=== PATIENT | female | born 1945 | race Caucasian/White ===

== ENCOUNTER → 2016-11-28 | Outpatient (CLI) | payer MEDICARE, BC ==
[~2016-11-28] MED LIST: ASPI-535; BACL10TA PO; CEPH-443 PO; HUM10VIA9 SQ; LISI10TA2 PO; NAPR-260 PO; PHEN-537 PO; SITA1TAB7 PO; TRAM50TA2 PO
--- NOTE | 2016-11-28 09:50 | RADRPT ---
PROCEDURE: US Lower extremity Venous. CLINICAL INDICATION: Pain and swelling TECHNIQUE: Multiple sonographic images of the left lower extremity deep venous system was obtained utilizing grayscale, color-flow, compressive sonography and doppler imaging with augmentation. The images were reviewed on a PACS workstation. COMPARISON: None. FINDINGS: There is normal compressibility and flow within the left common femoral, deep femoral, superficial f emoral and popliteal veins. Normal respiratory variation and augmentation is seen. There is normal color flow and compressibility of left posterior tibial and peroneal veins IMPRESSION: No sonographic evidence for left lower extremity deep venous thrombosis. RPTAT: HH .Breezy Lomas MD, MD Date Time Electronically viewed and signed by .Breezy Lomas MD, on 11/28/2016 09:50 .W/
== END | disposition home or self-care (01) ==
LOC: VAS 09:08
PROVIDERS: ATTEND Internal Medicine
DX: R60.0 Localized edema (principal)
CPT/HCPCS: 93971

== ENCOUNTER 2017-05-12 08:41 | Emergency (ER) | END 2017-05-12 09:50 | disposition home or self-care (01) ==

== ENCOUNTER 2017-05-14 07:36 | Emergency (ER) | END 2017-05-14 10:13 | disposition home or self-care (01) ==

== ENCOUNTER 2017-11-14 16:23 | Emergency (ER) | END 2017-11-14 19:39 | disposition left against medical advice (07) ==